=== PATIENT | male | born 1990 | race Caucasian/White ===

== ENCOUNTER 2018-07-27 17:15 | Inpatient (IN) | payer OTHER ==
[~2018-07-27] VITALS: Ht 170.2 cm; Wt 82.0 kg
[2018-07-27 17:20] VITALS: Ht 170.2 cm; Wt 82.0 kg
[2018-07-27 17:43] LABS: BASOPHIL % 0.6 % (0-2); PLATELET COUNT 323 x10^3mcL (130-400); RED CELL DISTRIBUTION WIDTH 13.3 % (11.5-14.5)
[2018-07-27 17:51] LABS: CALCIUM 8.7 mg/dL (8.5-10.1); CARBON DIOXIDE 24.2 mmol/L (21-32); CHLORIDE SERUM 106 mmol/L (98-107); CREATININE SERUM 0.8 mg/dL (0.7-1.3); GFR1 > 60 mL/min; GLUCOSE SERUM 84 mg/dL (74-106); POTASSIUM SERUM 3.3 mmol/L (3.5-5.1); SODIUM SERUM 142 mmol/L (136-145)
[2018-07-27 17:55] LABS: ALBUMIN 4.1 g/dL (3.4-5.0); ALKALINE PHOSPHATASE 79 U/L (46-116); ALT/SGPT 75 U/L (16-63); AST/SGOT 22 U/L (15-37); BILIRUBIN TOTAL 0.4 mg/dL (0.20-1.00); TOTAL PROTEIN, SERUM 7.6 g/dL (6.4-8.2)
[2018-07-27 18:12] LABS: AMPHETAMINE QUAL UR NONE DETECTED (See below)
[2018-07-28 12:47] LABS: PHOSPHOROUS 3.3 mg/dL (2.5-4.9)
[2018-07-28 12:51] LABS: FREE T4 0.93 ng/dL (0.76-1.46); FREE THYROXINE INDEX 2.9 ug/dL (1.4-4.5); T4(THYROXINE) 8.4 ug/dL (4.7-13.3)
[2018-07-28 12:56] LABS: T3 TOTAL 1.29 ng/mL
[2018-07-28] MEDS ORDERED: SEROQUEL XR300 M1 PO (16:28)
[2018-07-28] MEDS ORDERED: TRILEPTAL600 MG PO (16:28)
[2018-07-28] MEDS ORDERED: EFFEXOR-XR150 MG PO (16:29)
[2018-07-28] MEDS ORDERED: XANAX0.5 MG PO (16:29)
[2018-07-28 17:57] VITALS: BP 155/91
[2018-07-28 22:30] VITALS: BP 154/88
[2018-07-29 06:05] VITALS: BP 140/86
[2018-07-29 09:16] VITALS: BP 140/99
[2018-07-29 15:50] VITALS: BP 147/95
[2018-07-29 17:51] VITALS: BP 165/109
[2018-07-29 19:17] VITALS: BP 143/93
[2018-07-29 21:54] VITALS: BP 145/90
[2018-07-30 06:08] VITALS: BP 137/70
[2018-07-30 09:19] VITALS: BP 144/99
[2018-07-30 16:28] VITALS: BP 141/95; BP 156/89
== END 2018-07-30 18:40 | disposition left against medical advice (07) | DRG 817 ==
LOC: ED 17:15 → MU 07-28 11:29
PROVIDERS: Emergency Medicine; ADMIT General Practice
DX: T42.4X2A Poisoning by benzodiazepines, intentional self-harm, initial encounter (principal); G92 Toxic encephalopathy; F43.10 Post-traumatic stress disorder, unspecified; F10.20 Alcohol dependence, uncomplicated; I10 Essential (primary) hypertension; S60.912A Unspecified superficial injury of left wrist, initial encounter; Z53.21 Procedure and treatment not carried out due to patient leaving prior to being seen by health care provider; F41.9 Anxiety disorder, unspecified; F32.9 Major depressive disorder, single episode, unspecified; X78.8XXA Intentional self-harm by other sharp object, initial encounter; Y93.89 Activity, other specified; Y92.89 Other specified places as the place of occurrence of the external cause; Y99.8 Other external cause status
CPT/HCPCS: 84439; G0480; J7030; Q0092; Q0162

== ENCOUNTER 2019-01-27 11:56 | Emergency (ER) | payer OTHER ==
[~2019-01-27] VITALS: Ht 170.2 cm; Wt 91.2 kg
[~2019-01-27 11:56] MED LIST: EFFEXOR-XR150 MG PO; SEROQUEL XR300 M1 PO; TRILEPTAL600 MG PO; XANAX0.5 MG PO
[2019-01-27 12:15] VITALS: BP 147/91; Ht 170.2 cm; Wt 91.2 kg
[2019-01-27 12:38] LABS: BASOPHIL % 0.6 % (0-2); PLATELET COUNT 333 x10^3mcL (130-400); RED CELL DISTRIBUTION WIDTH 13.6 % (11.5-14.5)
[2019-01-27 12:47] LABS: CALCIUM 8.4 mg/dL (8.5-10.1); CHLORIDE SERUM 104 mmol/L (98-107); CREATININE SERUM 0.9 mg/dL (0.7-1.3); GFR1 > 60 mL/min; GLUCOSE SERUM 115 mg/dL (74-106); POTASSIUM SERUM 4.1 mmol/L (3.5-5.1); SODIUM SERUM 139 mmol/L (136-145)
[2019-01-27 12:51] LABS: ALBUMIN 3.9 g/dL (3.4-5.0); ALKALINE PHOSPHATASE 116 U/L (46-116); ALT/SGPT 164 U/L (16-63); AMYLASE 41 U/L (25-115); AST/SGOT 40 U/L (15-37); BILIRUBIN TOTAL 0.26 mg/dL (0.20-1.00); LIPASE 60 IU/L (73-393); TOTAL PROTEIN, SERUM 7.6 g/dL (6.4-8.2)
== END 2019-01-27 13:58 | disposition left against medical advice (07) ==
LOC: ED 11:56
DX: Z53.21 Procedure and treatment not carried out due to patient leaving prior to being seen by health care provider (principal)